=== PATIENT | female | born 1945 | race Caucasian/White ===

== ENCOUNTER 2024-11-11 09:28 | Day surgery (SDC) | payer MEDICARE, BC ==
[2024-11-11 09:47] VITALS: RESP 18
[2024-11-11] MEDS: Lactated Ringers 1,000 ML IV SCH (09:53)
[2024-11-11] MEDS ORDERED: propofoL IV ONE ×2 (11:15→11:36)
[2024-11-11 12:15] VITALS: TEMP 96.4; O2SAT 98
[2024-11-11 12:30] VITALS: BP 144/74; PULSE 63
--- NOTE | 2024-11-12 10:29 | OP ---
SURGERY DATE/TIME: 11/11/2024 [id number] PREOPERATIVE DIAGNOSIS: Dysphagia, hiatal hernia, history of colon polyps. POSTOPERATIVE DIAGNOSES: 1) Moderate gastritis. 2) Small hiatal hernia, 2 cm, sliding. 3) History of colon polyps. 4) Acutely angulated sigmoid colon. PROCEDURES: 1) Esophagogastroduodenoscopy with biopsy. 2) Colonoscopy. SURGEON: Easton Rodgers MD. ANESTHESIA: IV. PATIENT CONDITION: Stable. COMPLICATIONS: None. SPECIMENS: Gastric biopsy for H pylori. INDICATIONS: The patient is a 79-year-old female with history of colon polyps, due for surveillance for that. Also with some mild dysphagia and has a history of hiatal hernia. Discussed with patient and she elects to proceed. FINDINGS: 1) Moderate gastritis with erythema, friability, small 2 cm sliding hiatal hernia, normal esophagus. 2) Colonoscopy with acute angulation in the sigmoid colon, initially difficult to pass the scope. Was able to pass the scope. No polyps. Good preparation. DESCRIPTION OF PROCEDURE: Patient was brought to the endoscopy suite. Routinely positioned and prepared. IV anesthesia induced by Anesthesia. The gastroscope was inserted through the mouth and advanced to the third portion of the duodenum. Duodenum is normal in appearance. The stomach has moderate gastritis, erythema, friability, some blood specks. On contact, a little ooze. Biopsies are taken for H pylori. Retroflexion with 2 cm sliding hiatal hernia, is healthy in appearance. Esophagus is healthy in appearance. Stomach suctioned out. Scope withdrawn. Digital rectal exam, external exam normal. Colonoscope inserted. There is actually difficulty passing the sigmoid colon. She does have an acutely angulated sigmoid at 20 cm from the anus. Almost aborted, but was able to pass all the way to the cecum, confirmed by the ileocecal valve as well as the appendiceal orifice. Preparation is [place] good preparation. Greater than 6-minute withdrawal time. There are no polyps or lesions identified on withdrawal. Colon otherwise normal other than that acute angulation. Retroflexion normal. The patient tolerated the procedure well. RECOMMENDATIONS: The states that she just started on this pantoprazole 20 once a day. I certainly do recommend a PPI. If she has been on this same dose for awhile, might need a higher dose PPI or b.i.d. PPI and consider Carafate. But, we will see her back in the office to go over biopsy results, and she is going to bring her medications.
== END 2024-11-11 12:33 | disposition home or self-care (01) ==
LOC: SDC 09:28
PROVIDERS: ATTEND Surgery
DX: K29.70 Gastritis, unspecified, without bleeding (principal); K44.9 Diaphragmatic hernia without obstruction or gangrene; K31.A19 Gastric intestinal metaplasia without dysplasia, unspecified site; Z86.0100 Personal history of colon polyps, unspecified; K56.609 Unspecified intestinal obstruction, unspecified as to partial versus complete obstruction
CPT/HCPCS: 99100; J2704